=== PATIENT | female | born 1975 | race Caucasian/White ===

== ENCOUNTER 2017-09-12 20:50 | Emergency (ER) | payer OTHER ==
[~2017-09-12] VITALS: Ht 154.9 cm; Wt 52.6 kg
[2017-09-12 20:55] VITALS: BP_SYST 108
[2017-09-12 21:12] LABS: BILIRUBIN,URINE NEGATIVE (NEGATIVE); BLOOD, URINE 2+ (NEGATIVE); COLOR,URINE YELLOW (YELLOW); GLUCOSE,URINE NEGATIVE (NEGATIVE); KETONES,URINE 2+ (NEGATIVE); LEUKOCYTE ESTERASE ,URINE NEGATIVE (NEGATIVE); NITRITE, URINE NEGATIVE (NEGATIVE); PH,URINE 5.5 (5.0-8.0); PROTEIN URINE NEGATIVE (NEGATIVE); UROBILINOGEN,URINE 0.2 (0.2-1.0)
[2017-09-12 21:15] LABS: CLARITY/URINE HAZY (CLEAR)
[2017-09-12 21:19] LABS: BACTERIA,URINE MODERATE /HPF (None Seen); MUCUS,URINE None Seen /LPF (None Seen); RBC,URINE 0-3 /HPF (0-3)
[2017-09-12 23:11] VITALS: BP_SYST 118
== END 2017-09-12 23:11 | disposition home or self-care (01) ==
LOC: SED 20:50
DX: K52.9 Noninfective gastroenteritis and colitis, unspecified (principal)
CPT/HCPCS: 81000-TC; 81025; 87086; 99284

== ENCOUNTER 2017-09-13 12:20 | Emergency (ER) | payer OTHER ==
[~2017-09-13] VITALS: Ht 154.9 cm; Wt 51.3 kg
[2017-09-13 12:23] VITALS: BP_SYST 102
[2017-09-13] MEDS ORDERED: NACL 0.9% 1,000 ML IV ONE (12:41)
[2017-09-13] MEDS ORDERED: ONDANSETRON HCL 4 MG/2 ML VIAL IVP ONE (12:45)
[2017-09-13] MEDS ORDERED: KETOROLAC TROMETHAMINE 30 MG VIAL IVP ONE (12:45)
[2017-09-13] MEDS ORDERED: MORPHINE 2 MG/ML INJ. SYRINGE IVP ONE (12:45)
[2017-09-13 12:56] LABS: BILIRUBIN,URINE 1+ (NEGATIVE); BLOOD, URINE 2+ (NEGATIVE); CLARITY/URINE CLEAR (CLEAR); COLOR,URINE YELLOW (YELLOW); GLUCOSE,URINE NEGATIVE (NEGATIVE); KETONES,URINE 2+ (NEGATIVE); LEUKOCYTE ESTERASE ,URINE NEGATIVE (NEGATIVE); NITRITE, URINE NEGATIVE (NEGATIVE); PROTEIN URINE 1+ (NEGATIVE); UROBILINOGEN,URINE 0.2 (0.2-1.0)
[2017-09-13 12:59] LABS: BASOPHILS # (AUTO) 0.4 K/uL (0.0-0.2); EOSINOPHILS % (AUTO) 0.2 % (0.0-4.0); HEMATOCRIT 41.4 % (36-48); HEMOGLOBIN 14.1 g/dL (12.0-16.0); LYMPHOCYTES # (AUTO) 1.2 K/uL (1.0-5.5); LYMPHOCYTES % (AUTO) 9.9 % (20.5-51.5); MEAN CORPUSCULAR HEMOGLOBIN 31 pg (27-31); MEAN CORPUSCULAR HGB CONC 34 % (32-36); MEAN CORPUSCULAR VOLUME 92 fL (79.0-98.0); MONOCYTES # (AUTO) 0.7 K/uL (0.0-1.0); MONOCYTES % (AUTO) 6.1 % (1.7-9.3); NEUTROPHILS % (AUTO) 80.8 % (40.0-70.0); PLATELET COUNT (AUTO) 285 K/uL (130-430); RED BLOOD CELL COUNT(AUTO) 4.52 MIL/uL (4.2-6.2); RED CELL DISTRIBUTION WIDTH 12.8 % (9.0-15.0); WHITE BLOOD COUNT (AUTO) 12.3 K/uL (4.8-10.8)
[2017-09-13] MEDS ORDERED: MORPHINE 4 MG/ML INJ. SYRINGE IVP ONE (13:00)
[2017-09-13 13:10] LABS: BACTERIA,URINE FEW /HPF (None Seen); MUCUS,URINE 1+ /LPF (None Seen); PROTHROMBIN TIME 10.3 SECS (9.5-12.5); WBC,URINE 0-3 /HPF (0-3)
[2017-09-13 13:21] LABS: CALCIUM 9.6 mg/dL (8.4-11.0); CREATININE 0.94 mg/dL (0.55-1.30); POTASSIUM 3.6 mmol/L (3.5-5.1)
[2017-09-13 13:26] LABS: ALBUMIN 3.9 g/dL (3.4-4.8); TOTAL BILIRUBIN 0.7 mg/dL (0.0-1.0)
[2017-09-13 15:59] VITALS: BP_SYST 102
== END 2017-09-13 15:59 | disposition home or self-care (01) ==
LOC: SED 12:20
DX: N83.209 Unspecified ovarian cyst, unspecified side (principal); R19.7 Diarrhea, unspecified; Z97.8 Presence of other specified devices
CPT/HCPCS: 36415; 74176; 76830; 76857; 80053; 81000; 81025; 83690; 85025; 85610; 85730; 96361; 96374; 96375; 99285; J1885; J2270; J2405; J7030